=== PATIENT | male | born 1975 ===

== ENCOUNTER 2022-07-20 21:10 | Emergency (ER) | payer OTHER ==
[~2022-07-20] VITALS: Ht 170 cm; Wt 211.0 kg
[2022-07-20 21:30] VITALS: BP 178/93
[2022-07-20 22:00] LABS: BILIRUBIN,URINE NEGATIVE (NEGATIVE); CLARITY,URINE SL CLOUDY; COLOR,URINE YELLOW; GLUCOSE, URINE (UA) NEGATIVE (NEGATIVE); KETONES,URINE TRACE (NEGATIVE); LEUKOCYTE ESTERASE ,URINE 1+ (NEGATIVE); NITRITE,URINE POSITIVE (NEGATIVE); PH,URINE 5.5 (5-9); PROTEIN,URINE 1+ (NEGATIVE)
[2022-07-20 22:08] LABS: BACTERIA,URINE MODERATE /HPF; HYALINE CASTS, URINE 0-2 /LPF; RBC,URINE RARE /HPF; SQUAMOUS EPITHELIAL CELL,UR 0-2 /HPF; WBC,URINE 50-100 /HPF
[2022-07-20 22:26] LABS: BASOPHILS % (AUTO) 0 % (0-10); EOSINOPHILS # (AUTO) 0.1 10^3/uL (0.0-0.3); EOSINOPHILS % (AUTO) 1 % (0-10); HEMATOCRIT 37 % (40-54); HEMOGLOBIN 11.2 g/dL (13.3-17.7); LYMPHOCYTES # (AUTO) 1.5 10^3/uL (1.0-4.0); LYMPHOCYTES % (AUTO) 16 % (12-44); MEAN CORPUSCULAR HEMOGLOBIN 27 pg (25-34); MEAN CORPUSCULAR HGB CONC 31 g/dL (32-36); MEAN CORPUSCULAR VOLUME 88 fL (80-99); MEAN PLATELET VOLUME 9.2 fL (9.0-12.2); MONOCYTES # (AUTO) 0.6 10^3/uL (0.0-1.0); MONOCYTES % (AUTO) 6 % (0-12); NEUTROPHILS # (AUTO) 7.6 10^3/uL (1.8-7.8); NEUTROPHILS % (AUTO) 78 % (42-75); PLATELET COUNT 278 10^3/uL (130-400); WHITE BLOOD COUNT 9.8 10^3/uL (4.3-11.0)
[2022-07-20 22:29] LABS: ALBUMIN 3.6 GM/DL (3.2-4.5)
[2022-07-20 22:30] LABS: POTASSIUM 3.6 MMOL/L (3.6-5.0)
[2022-07-20] MEDS ORDERED: LACTATED RINGERS 1,000 ML IV ONE (22:30)
[2022-07-20] MEDS ORDERED: ONDANSETRON 4 MG/2 ML (SDV) Z0FRAN IVP ONE (22:30)
[2022-07-20 22:31] LABS: CALCIUM 8.9 MG/DL (8.5-10.1)
[2022-07-20 22:32] LABS: TOTAL PROTEIN 7.7 GM/DL (6.4-8.2)
[2022-07-20 22:34] LABS: BILIRUBIN,TOTAL 0.3 MG/DL (0.1-1.0)
[2022-07-20 22:38] LABS: MAGNESIUM 2.2 MG/DL (1.6-2.4)
[2022-07-20] MEDS ORDERED: fentaNYL INJ 100 MCG/2 ML AMP IVP ONE ×2 (23:15)
[2022-07-20] MEDS ORDERED: cefTRIAXone 1 GM PRE-MIX 50 ML IV STA (23:28)
[2022-07-20] MEDS ORDERED: ANTACID SUSP 30 ML UDC (MYLANTA) PO ONE (23:30)
[2022-07-20] MEDS ORDERED: PANTOPRAZOLE 40 MG (PROTONIX) VIAL IV ONE (23:30)
[2022-07-20] MEDS ORDERED: LIDOCAINE 2% VISCOUS 15 ML UDC PO ONE (23:30)
[2022-07-21] MEDS ORDERED: morphine INJ 10 MG/ML 1ML (SYR OR VIAL) IVP STA (00:33)
[2022-07-21] MEDS ORDERED: LACTATED RINGERS 1,000 ML IV ONE (00:45)
[2022-07-21] MEDS ORDERED: PROMETHAZINE INJ 25 MG/ML (PHENERGAN) AMP IVP ONE (00:45)
--- NOTE | 2022-07-21 01:17 | ED Abdominal Pain ---
General Chief Complaint: Abdominal/GI Problems Stated Complaint: ABD PAIN Nursing Triage Note: PT AMB TO ED BY POV WITH MOTHER WITH C/O EPIGASTRIC/ UPPER ABD PAIN, N/V SINCE APPROX 1800 THIS EVENING. PT REPORTS SX BEGAN ABOUT AN HOUR AFTER EATING [employer], HAS HAD 4 EPISODES OF VOMITING. PT TRIED TAKING PEPTO BISMOL, ALKASELTZER, AND SPRITE WITH NO RELIEF. Source of Information: Patient Exam Limitations: No Limitations History of Present Illness Date Seen by Provider: Jul 21, 2022 Time Seen by Provider: 21:55 Initial Comments This 47-year-old gentleman presents to the emergency room with complaints of left upper quadrant and epigastric pain associated with nausea and vomiting that started at approximately 1800 this evening after he ate [place] food. His pain is intense and he is in distress upon arrival. He has had a normal bowel movement since the onset of pain. He denies any diarrhea, hematochezia, or hemoptysis. He is afebrile. He states he continues to pass flatus. He reports a prior laparoscopic which he believes was performed for appendectomy. Allergies and Home Medications Allergies Coded Allergies: No Known Drug Allergies (Unverified , 07/20/22) Patient Home Medication List Home Medication List Reviewed: Yes Review of Systems Review of Systems Constitutional: no symptoms reported EENTM: No Symptoms Reported Respiratory: No Symptoms Reported Cardiovascular: No Symptoms Reported Gastrointestinal: See HPI Genitourinary: No Symptoms Reported Musculoskeletal: no symptoms reported Skin: no symptoms reported Psychiatric/Neurological: No Symptoms Reported Endocrine: No Symptoms Reported Past Gjvlhpx-Dyjxfw-Qlnlhb Hx Patient Social History Tobacco Use?: No Use of E-Cig and/or Vaping dev: No Substance use?: No Alcohol Use?: No Pt feels they are or have been: No Immunizations Up To Date Influenza Vaccine Up-to-Date: No; Not Current First/Initial COVID19 Vaccinat: 2020 Second COVID19 Vaccination Abdirashid: 2020 Third COVID19 Vaccination Date: 2021 Past Medical History Surgery/Hospitalization HX: DENIES Surgeries: Yes Abdominal (Possibly appendectomy) Respiratory: No Cardiac: No Neurological: No Reproductive Disorders: No Genitourinary: No Gastrointestinal: No Musculoskeletal: No Endocrine: No HEENT: No Cancer: No Psychosocial: No Integumentary: No Physical Exam Vital Signs Vital Signs - First Documented 07/20/22 21:30 Temp 36.5 Pulse 78 Resp 30 B/P (MAP) 178/93 (121) Pulse Ox 98 O2 Delivery Room Air Capillary Refill : Height/Weight/BMI Height: '" Weight: lbs. oz. kg; 73.00 BMI Method: General Appearance: WD/WN, moderate distress, obese HEENT: PERRL/EOMI, normal ENT inspection Neck: normal inspection Respiratory: lungs clear, normal breath sounds, no respiratory distress Cardiovascular: regular rate, rhythm, no edema, no murmur Gastrointestinal: normal bowel sounds, soft; No distended; tenderness (Epigastrium and left upper quadrant) Extremities: normal inspection, no pedal edema Neurologic/Psychiatric: no motor/sensory deficits, alert, normal mood/affect, oriented x 3 Skin: normal color, warm/dry Progress/Results/Core Measures Results/Orders Lab Results Laboratory Tests Test 07/20/22 21:35 07/20/22 21:55 Range/Units Urine Color YELLOW Urine Clarity SL CLOUDY Urine pH 5.5 5-9 Urine Specific [place] >=1.030 1.016-1.022 Urine Protein 1+ H NEGATIVE Urine Glucose (UA) NEGATIVE NEGATIVE Urine Ketones TRACE H NEGATIVE Urine Nitrite POSITIVE H NEGATIVE Urine Bilirubin NEGATIVE NEGATIVE Urine Urobilinogen 0.2 < = 1.0 MG/DL Urine Leukocyte Esterase 1+ H NEGATIVE Urine RBC (Auto) TRACE-I H NEGATIVE Urine RBC RARE /HPF Urine WBC 50-100 H /HPF Urine Squamous Epithelial Cells 0-2 /HPF Urine Crystals NONE /LPF Urine Bacteria MODERATE H /HPF Urine Casts PRESENT /LPF Urine Hyaline Casts 0-2 H /LPF Urine Mucus SMALL H /LPF Urine Culture Indicated YES White Blood Count 9.8 4.3-11.0 10^3/uL Red Blood Count 4.17 L 4.30-5.52 10^6/uL Hemoglobin 11.2 L 13.3-17.7 g/dL Hematocrit 37 L 40-54 % Mean Corpuscular Volume 88 80-99 fL Mean Corpuscular Hemoglobin 27 25-34 pg Mean Corpuscular Hemoglobin Concent 31 L 32-36 g/dL Red Cell Distribution Width 14.6 H 10.0-14.5 % Platelet Count 278 130-400 10^3/uL Mean Platelet Volume 9.2 9.0-12.2 fL Immature Granulocyte % (Auto) 0 % Neutrophils (%) (Auto) 78 H 42-75 % Lymphocytes (%) (Auto) 16 12-44 % Monocytes (%) (Auto) 6 0-12 % Eosinophils (%) (Auto) 1 0-10 % Basophils (%) (Auto) 0 0-10 % Neutrophils # (Auto) 7.6 1.8-7.8 10^3/uL Lymphocytes # (Auto) 1.5 1.0-4.0 10^3/uL Monocytes # (Auto) 0.6 0.0-1.0 10^3/uL Eosinophils # (Auto) 0.1 0.0-0.3 10^3/uL Basophils # (Auto) 0.0 0.0-0.1 10^3/uL Immature Granulocyte # (Auto) 0.0 0.0-0.1 10^3/uL Sodium Level 145 135-145 MMOL/L Potassium Level 3.6 3.6-5.0 MMOL/L Chloride Level 107 98-107 MMOL/L Carbon Dioxide Level 24 21-32 MMOL/L Anion Gap 14 5-14 MMOL/L Blood Urea Nitrogen 11 7-18 MG/DL Creatinine 1.00 0.60-1.30 MG/DL Estimat Glomerular Filtration Rate 95 BUN/Creatinine Ratio 11 Glucose Level 121 H 70-105 MG/DL Calcium Level 8.9 8.5-10.1 MG/DL Corrected Calcium 9.2 8.5-10.1 MG/DL Magnesium Level 2.2 1.6-2.4 MG/DL Total Bilirubin 0.3 0.1-1.0 MG/DL Aspartate Amino Transf (AST/SGOT) 15 5-34 U/L Alanine Aminotransferase (ALT/SGPT) 16 0-55 U/L Alkaline Phosphatase 73 40-136 U/L C-Reactive Protein High Sensitivity 1.42 H 0.00-0.50 MG/DL Total Protein 7.7 6.4-8.2 GM/DL Albumin 3.6 3.2-4.5 GM/DL Lipase 42 8-78 U/L My Orders Orders - QUENTIN BYRNES MD Ua Culture If Indicated (07/20/22 21:55) Urine Culture (07/20/22 21:35) Cbc With Automated Diff (07/20/22 22:17) Comprehensive Metabolic Panel (07/20/22 22:17) Hs C Reactive Protein (07/20/22 22:17) Lipase (07/20/22 22:17) Magnesium (07/20/22 22:17) Ed Iv/Invasive Line Start (07/20/22 22:17) Ondansetron Injection (Zofran Injectio (07/20/22 22:30) Lactated Ringers (Lr 1000 Ml Iv Solution (07/20/22 22:30) Fentanyl Inj (Sublimaze Injection) (07/20/22 23:15) Ceftriaxone 1 Gm Pre-Mix (Rocephin 1 Gm (07/20/22 23:28) Pantoprazole Injection (Protonix Injecti (07/20/22 23:30) Lidocaine 2% Viscous 15 Ml (Xylocaine Vi (07/20/22 23:30) Antacid Suspension (Mylanta Suspension (07/20/22 23:30) Abdomen/Kub 1view (07/20/22 23:35) Chest 1 View, Ap/Pa Only (07/20/22 23:35) Morphine Injection (Morphine Injection (07/21/22 00:33) Lactated Ringers (Lr 1000 Ml Iv Solution (07/21/22 00:45) Promethazine Injection (Phenergan Injec (07/21/22 00:45) Medications Given in ED Current Medications Medications Dose Ordered Sig/Clint Route Start Time Stop Time Status Last Admin Dose Admin Al Hydrox/Mg Hydrox/Simethicone 30 ml ONCE ONCE PO 07/20/22 23:30 07/20/22 23:31 DC 07/20/22 23:39 30 ML Fentanyl Citrate 100 mcg ONCE ONCE IVP 07/20/22 23:15 07/20/22 23:16 DC 07/20/22 23:20 100 MCG Lactated Ringer's 1,000 ml @ 0 mls/hr Q0M ONCE IV 07/20/22 22:30 07/20/22 22:31 DC 07/20/22 22:40 0 MLS/HR Lactated Ringer's 1,000 ml @ 0 mls/hr Q0M ONCE IV 07/21/22 00:45 07/21/22 00:46 DC 07/21/22 00:47 0 MLS/HR Lidocaine HCl 15 ml ONCE ONCE PO 07/20/22 23:30 07/20/22 23:31 DC 07/20/22 23:42 15 ML Ondansetron HCl 8 mg ONCE ONCE IVP 07/20/22 22:30 07/20/22 22:31 DC 07/20/22 22:40 8 MG Pantoprazole 40 mg ONCE ONCE IV 07/20/22 23:30 07/20/22 23:31 DC 07/20/22 23:43 40 MG Promethazine HCl 25 mg ONCE ONCE IVP 07/21/22 00:45 07/21/22 00:46 DC 07/21/22 00:43 25 MG Vital Signs/I&O 07/20/22 21:30 Temp 36.5 Pulse 78 Resp 30 B/P (MAP) 178/93 (121) Pulse Ox 98 O2 Delivery Room Air Blood Pressure Mean: 121 Progress Progress Note : Time: 01:34 Progress Note Patient was treated with fentanyl and GI cocktail with out significant improvement in pain. Nausea was treated with Zofran. Refractory nausea was treated with Phenergan. Patient has exhibited no vomiting in the ER. Refractory pain was treated with morphine. Patient is resting comfortably now. Due to the intensity of pain and lack of improvement with GI cocktail and fentanyl 100 mcg, my judgment is that CT is necessary for further evaluation. Upright abdominal x-ray was obtained but was obscured by body habitus. There did appear to be a significant amount of gas within the stomach itself. Otherwise findings were nonspecific. Chest x-ray was unremarkable. Unf ortunately, patient exceeds the weight limit for our CT scanner. His present weight as obtained in the emergency room is 211.4 kg or approximately 467 pounds. Urinary tract infection was identified on urinalysis and was treated with Rocephin. Patient initially requested transfer to [facility] but he exceeded the girth limit of their CT scanner. His circumference is approximately 168 cm or 66 inches and his hip to hip width is approximately 18 inches or 45.5 cm. As an alternative I contacted [facility] who stated they could accommodate his size. Case was reviewed with Dr. Marie. She accepts transfer to the emergency room. EMS transport is not available at this time. Patient is stable to transfer by private vehicle. We will ensure he is alert and steady on his feet before we allow him to travel by private vehicle. Diagnostic Imaging Diagonstic Imaging: Xray Plain Films/CT/US/NM/MRI: chest, abdomen, pelvis Comments X-rays of the chest, abdomen and pelvis were reviewed by me. Reports not yet available. Body habitus obscures interpretation. There is significant amount of gastric gas seen. Findings were otherwise nonspecific. Departure Impression Primary Impression: Left upper quadrant pain Additional Impressions: Nausea & vomiting Qualified Codes: R11.2 - Nausea with vomiting, unspecified Urinary tract infection Qualified Codes: N39.0 - Urinary tract infection, site not specified Disposition: XFER SHT-TRM HOSP Condition: Stable Transfer Transfer Reason: Exceeds level of care Time Spoke to Accepting Phy: 01:15 Transfer Progress Notes Transfer accepted by Dr. Marie at [facility]. Transfer center did obtain clearance from the radiology department regarding patient's size before committing to transfer. Transfer Time: 02:05 Transfer Facility: [facility] Method of Transfer: Private Vehicle Departure-Patient Inst. Referrals: NO,LOCAL PHYSICIAN (PCP/Family) Primary Care Physician QUENTIN BYRNES MD Jul 21, 2022 01:17
--- NOTE | 2022-07-21 08:08 | Diagnostic Imaging Report ---
INDICATION: Abdominal pain. EXAMINATION: Abdomen 07/20/2022. FINDINGS: Two views of the abdomen with portions of the left lower abdomen not included. Lower abdomen not included either. Visualized abdomen demonstrates scattered air and stool throughout the colon. No dilated loops of bowel appreciated. No free air. IMPRESSION: 1. Nonobstructive bowel gas pattern with limited visualization of the entire abdomen. Dictated by: Dictated on workstation # [id number]
--- NOTE | 2022-07-21 08:12 | Diagnostic Imaging Report ---
INDICATION: Abdominal pain Frontal chest 1154 p.m. There is poor inspiration. The heart is normal in size. There is mild central vascular congestion. There is some minimal left basilar atelectasis. There is no consolidation or pneumothorax or pleural fluid. IMPRESSION: Poor inspiration. Mild central vascular congestion. Minimal left basilar atelectasis. No consolidation. Dictated by: Dictated on workstation # [id number]
== END 2022-07-21 02:05 | disposition short-term general hospital (02) ==
LOC: EDUNIT# 21:10 → ER 21:12
DX: N39.0 Urinary tract infection, site not specified (principal); R14.0 Abdominal distension (gaseous); R10.12 Left upper quadrant pain; E66.9 Obesity, unspecified; Z68.45 Body mass index [BMI] 70 or greater, adult; Z98.890 Other specified postprocedural states
CPT/HCPCS: 36415; 71045; 74018; 80053; 81000; 83690; 83735; 85025; 86141; 87077; 87088; 87186

== ENCOUNTER 2022-11-30 05:40 | Outpatient (CLI) | payer OTHER ==
[~2022-11-30] VITALS: Ht 170.2 cm; Wt 204.5 kg
[2022-12-01] MEDS ORDERED: NF-COLE1GM PO (14:33)
== END 2022-12-01 14:35 | disposition home or self-care (01) ==
LOC: PREOP 05:40
PROVIDERS: ATTEND Orthopaedic Surgery
DX: Z01.818 Encounter for other preprocedural examination (principal)

== ENCOUNTER 2022-12-07 08:42 | Day surgery (SDC) | payer OTHER ==
--- NOTE | 2022-11-29 07:17 | HISTORY AND PHYSICAL ---
DATE OF SERVICE: 12/07/2022 ADMISSION HISTORY AND PHYSICAL This should be for outpatient surgery on 12/07/2022 for left shoulder arthroscopy and biceps tenodesis. HISTORY: The patient is a 47-year-old right hand dominant gentleman who injured his left shoulder at work. He was trying to stop a box from moving away from when he felt a tearing pain in his shoulder. Since then, he has had pain with overhead activities. He ultimately underwent an MRI, which revealed a large SLAP tear. He denies prior history of shoulder problems. He has been on light duties, but reports continued pain even with the light duties. He reports pain at night. He reports pain with driving when he has to turn the steering wheel and bring his hand over the top of the steering wheel. Due to functional impairment and failure to improve with conservative measures, the patient elected to proceed with surgical intervention. REVIEW OF SYSTEMS: No chest pain, no shortness of breath. No dysuria. PAST MEDICAL HISTORY: Significant for hypercholesterolemia. PAST SURGICAL HISTORY: Cholecystectomy. SOCIAL HISTORY: The patient is employed by [employer]. FAMILY HISTORY: Noncontributory. PRIMARY CARE PROVIDER: [facility]. MEDICATIONS: Colestid. ALLERGIES: No known drug allergies. The patient denies tobacco use. PHYSICAL EXAM: The patient is well-developed, well-nourished, in no acute distress. HEENT: Normocephalic, atraumatic. Pupils equal, round and reactive to light. Oropharynx is clear. NECK: Supple, with no lymphadenopathy. LUNGS: Clear to auscultation bilaterally. HEART: Regular rate and rhythm. ABDOMEN: Soft, nontender, nondistended. EXTREMITIES: The left shoulder demonstrate pain beyond 90 degrees of active forward elevation. He has a positive Neer's and positive Hawkin sign. He has markedly positive [place]'s maneuver. He has crepitus with glenohumeral rotation. He has negative Spurling's maneuver. External rotation and internal rotation actively are symmetric to the contralateral side, but internal rotation is painful beyond his lower lumbar spine. IMPRESSION: Left shoulder SLAP tear. PLAN: Left shoulder arthroscopic-assisted biceps tenodesis. The risks, benefits, options, ramifications and recovery have been discussed at length with the patient. He understands and wishes to proceed. Job ID: [id number] DocumentID: [id number] Dictated Date: 11/21/2022 09:49:47 Vault Installer Date: 11/21/2022 12:27:00 Dictated By: KUNAL LAIRD MD
[~2022-12-07] VITALS: Ht 170.2 cm; Wt 204.5 kg
[2022-12-07] VITALS (10 sets, daily range): BP systolic 112–139; BP diastolic 61–94
[~2022-12-07 08:42] MED LIST: NF-COLE1GM PO; oxyCODONE/APAP 5/325MG (PERCOCET 5) TABLET PO PRN
--- NOTE | 2022-12-07 08:52 | Progress Note-Pre Operative ---
Pre-Operative Progress Note Date of Available H&P: Nov 29, 2022 Date H&P Reviewed: Dec 07, 2022 Time H&P Reviewed: 08:52 Changes from last HP none Pre-Operative Diagnosis: left shoulder SLAP tear KUNAL LAIRD MD Dec 07, 2022 08:52
--- NOTE | 2022-12-07 08:53 | Progress Note-Post Operative ---
Post-Operative Progess Note Surgeon (s)/Supervisor Coffee (s) Surgeon KUNAL LAIRD MD Supervisor Coffee: Darwin Patel Pre-Operative Diagnosis left shoulder SLAP tear Post-Operative Diagnosis left shoulder SLAP tear Procedure & Operative Findings Date of Procedure 12/07/22 Procedure Performed/Findings left shoulder arthroscoopic biceps tenotomy and labral debridement Anesthesia Type GETA Estimated Blood Loss Estimated blood loss (mL): minimal Specimens/Packing Specimens Removed none Packing: none KUNAL LAIRD MD Dec 07, 2022 08:53
[2022-12-07] MEDS ORDERED: ROCURONIUM 50 MG/5 ML (ZEMURON) VIAL IV ONE (08:54)
[2022-12-07] MEDS ORDERED: PROPOFOL INJECTION 0 ML IV ONE (08:54)
[2022-12-07] MEDS ORDERED: ONDANSETRON 4 MG/2 ML (SDV) Z0FRAN ONE (08:54)
[2022-12-07] MEDS ORDERED: LIDOCAINE PF 2% 5 ML (XYLOCAINE) VIAL ONE (08:54)
[2022-12-07] MEDS ORDERED: fentaNYL INJ 100 MCG/2 ML AMP ONE (08:54)
[2022-12-07] MEDS ORDERED: MIDAZOLAM 2 MG/2 ML (VERSED) VIAL ONE (08:55)
[2022-12-07] MEDS ORDERED: LACTATED RINGERS 1,000 ML IV PRN (09:00)
[2022-12-07] MEDS ORDERED: ceFAZolin INJECTION 1,000 MG in NS (IVPB) 50 ML IV ONE (09:00)
[2022-12-07] MEDS ORDERED: morphine PF (DURAMORPH) 10 MG/10 ML AMP ONE (09:23)
[2022-12-07] MEDS ORDERED: BUPIVACAINE 0.25% 30 ML (SENSORCAINE) VIAL ONE (09:24)
[2022-12-07] MEDS ORDERED: proPOfol 200 MG/20 ML (DIPRIVAN) VIAL IV ONE (09:55)
[2022-12-07] MEDS ORDERED: NEOSTIGMINE (BLOXIVERZ ) 1 MG/1ML 10 ML VIAL ONE (10:08)
[2022-12-07] MEDS ORDERED: GLYCOPYRROLATE 0.2 MG/ML (ROBINUL) 2 ML VIAL ONE (10:08)
[2022-12-07] MEDS ORDERED: SEVOFLURANE (ULTANE) 15 ML INHAL SOLN ONE ×2 (10:11→10:38)
[2022-12-07] MEDS ORDERED: PROMETHAZINE INJ 25 MG/ML (PHENERGAN) AMP IVP ONE (10:45)
[2022-12-07] MEDS ORDERED: morphine INJ 10 MG/ML 1ML (SYR OR VIAL) IVP ONE (10:45)
[2022-12-07] MEDS ORDERED: ONDANSETRON 4 MG/2 ML (SDV) Z0FRAN IVP PRN (10:45)
[2022-12-07] MEDS ORDERED: MEPERIDINE (DEMEROL) INJ 50 MG/ML IVP ONE (10:45)
[2022-12-07] MEDS ORDERED: HYDROmorphone 2 MG/ML VIAL (DILAUDID) IV ONE (10:45)
--- NOTE | 2022-12-07 18:35 | OPERATIVE REPORT ---
DATE OF SERVICE: 12/07/2022 PREOPERATIVE DIAGNOSES: 1. Left shoulder SLAP tear. 2. Left shoulder labral tear. POSTOPERATIVE DIAGNOSES: 1. Left shoulder SLAP tear. 2. Left shoulder labral tear. PROCEDURES: 1. Left shoulder arthroscopic biceps tenotomy. 2. Left shoulder arthroscopic labral debridement. SURGEON: Charles Laird MD PROJECT CONSTRUCTION MANAGER: Shai Patel, who assisted throughout the procedure and closed the incisions. ANESTHESIA: General endotracheal by Trevor gary CRNA. ESTIMATED BLOOD LOSS: Minimal. DRAINS: None. COMPLICATIONS: None. POSTOPERATIVE PLAN: Sling wear for comfort with progressive range of motion as symptoms allow. The patient was transported to the recovery room awake and stable condition. STATEMENT OF MEDICAL NECESSITY: The patient is a 47-year-old gentleman who injured his left shoulder at work. He has had popping, catching and pain since that point. He had a positive Austin's maneuver. Pain with apprehension. He was found to have a SLAP tear. Due to failure to improve with conservative measures, the patient elected to proceed with surgical intervention. Examination under anesthesia revealed forward elevation 170 degrees, external rotation 85 degrees, internal rotation of 75 degrees. ARTHROSCOPIC FINDINGS: Demonstrated a type 2 SLAP tear. In addition, there was anterior labral flap at the 9 o'clock position with no detachment of the capsule labral complex. The rotator cuff was intact throughout. The glenoid and humeral head demonstrated no gross chondral abnormalities. DESCRIPTION OF PROCEDURE: After risks and benefits of the procedure were discussed and questions were answered, informed consent was signed and placed on the chart. The operative site was confirmed in the preoperative holding area and initialed by surgeon. The patient was then transported to the operating room and after adequate level of general endotracheal anesthetic was obtained, timeout was called, confirming the operative site. Examination under anesthesia was performed with the above findings noted. The left shoulder and upper extremity were prepped and draped in the usual sterile fashion. The shoulder joint was injected with 20 mL of fluid. A standard posterior portal was placed under direct visualization. An anterior portal was created in the interval between the biceps, subscapularis and glenoid. The biceps anchor was released. The stump was debrided with a shaver. The anterior labral flap was debrided with a shaver as well. A tenodesis was not performed due to the patient's body habitus. The shoulder was copiously irrigated. The portal sites were closed with 4-0 nylon in simple interrupted fashion. The shoulder was injected with Duramorph. The port sites were infiltrated with plain Marcaine. A soft dressing and sling were applied, and the patient was transferred to the recovery room awake and in stable condition. Job ID: [id number] DocumentID: [id number] Dictated Date: 12/07/2022 10:16:32 Wind Site Manager Date: 12/07/2022 18:33:00 Dictated By: CHARLES LAIRD MD
== END 2022-12-07 12:45 | disposition home or self-care (01) ==
LOC: SDC 08:42
PROVIDERS: ATTEND Orthopaedic Surgery
DX: S43.432A Superior glenoid labrum lesion of left shoulder, initial encounter (principal); E66.01 Morbid (severe) obesity due to excess calories; Z68.45 Body mass index [BMI] 70 or greater, adult; S43.491A Other sprain of right shoulder joint, initial encounter
CPT/HCPCS: 87081